=== PATIENT | female | born 1935 | race Caucasian/White ===

== ENCOUNTER 2016-07-20 23:00 | Inpatient (IN) | payer MEDICARE, OTHER ==
--- NOTE | ~2016-07-20 | CN ---
Consultation Report [facility] [address] [place]. [address] NAME: TONEY KHANNA : 35 STATUS : ADM IN PAT#: [id number] AGE: 81 ADM/REG DATE : 07/21/16 MR#: [id number] REPORT SERV DATE: 07/23/16 DICTATED BY: KATIE BOOKER DATE: 07/23/16 REPORT STATUS : Draft TRANSCRIBED BY: MODL DATE: 07/23/16 INFECTIOUS DISEASE CONSULTATION DATE OF CONSULTATION: 07/23/2016 REASON FOR CONSULTATION: Recurrent UTI. HISTORY OF PRESENT ILLNESS: This is an 81-year-old female, known to me from inpatient consultation back on 06/14 with a history of multiple medical problems along with recurrent urinary tract infections, for which she has been followed by Urology and has had treatments including intravesical gentamicin. In May, she had a Proteus UTI with sepsis and positive blood cultures and received a two-week course of IV antibiotics, which ended with ampicillin back at the residential unit. The patient was readmitted to the hospital on 06/20 from [facility] with fevers, altered mental status, and evidence of sepsis and had marked pyuria on her urinalysis, although this was from a chronic Maria catheter. After blood and urine cultures were obtained, she was started on Zosyn. Initial chest x-ray was not felt to show any evidence of pneumonia. She had a CT scan of the abdomen and pelvis without IV contrast on 06/19 and this revealed mild bibasilar subsegmental atelectasis and small pleural effusion along with chronic areas of renal cortical scarring, left greater than right, and diffuse atrophy in the left kidney and mild diverticulosis without evidence of diverticulitis. The patient had a fever up to 100.9 on 06/20 with 27% bands. Her white blood cell count was 11.6 and that has now normalized, and she has had no subsequent fevers. Her creatinine, which was 2.47 on admission, is steadily improving. However, yesterday, she developed worsening shortness of breath. She had a bedside swallow study, which showed no overt aspiration. The patient was evaluated by Pulmonary and continued to worsen throughout the day, requiring institution of a non- rebreather mask. Vancomycin was added to Zosyn for possible pneumonia, and a chest x-ray this morning does show new right-sided infiltrates. The patient says she is coughing a little, but not very productive. She denies any chest pain, abdominal pain, nausea, vomiting, or diarrhea. PAST MEDICAL HISTORY: As outlined on the previous consultation and is most notable for history of obstructive sleep apnea, asthma, coronary artery disease, pulmonary hypertension, diabetes, and systemic hypertension. She does have a pacemaker. ALLERGIES: AMITRIPTYLINE. PRESENT MEDICATIONS: In addition to the antibiotics mentioned include Norvasc, aspirin, Lipitor, Caltrate, vitamin D, Coreg, Plavix, Aricept, Lovenox, Flonase, Neurontin, Levsin, Isordil, Linzess, Ativan, magnesium oxide, Glucophage, Singulair, Promega capsules, Protonix, MiraLax, prednisone 10 mg daily, Neupro, Florastor, Zoloft, Desyrel. SOCIAL HISTORY: Unchanged. Consultation Report [address] [place]. [address] NAME: TONEY KHANNA : 35 STATUS : ADM IN [facility]#: [id number] AGE: 81 ADM/REG DATE : 07/21/16 MR#: [id number] REPORT SERV DATE: 07/23/16 DICTATED BY: KATIE BOOKER DATE: 07/23/16 REPORT STATUS : Draft TRANSCRIBED BY: HALEIGH DATE: 07/23/16 FAMILY HISTORY: Unchanged. REVIEW OF SYSTEMS: Otherwise, negative. No nausea, vomiting, or diarrhea. PHYSICAL EXAMINATION: VITAL SIGNS: The patient is alert. Blood pressure 140/64, pulse 86. She is afebrile. Respiratory rate is around 20 on the non-rebreather mask. GENERAL: She is cooperative, in no acute distress. She is not labored in her breathing. HEAD AND NECK: Other than the mask is unremarkable, but I did not examine the oral cavity. LUNGS: She has diffuse, very soft end-expiratory wheezes and a few rhonchi. CARDIAC: No murmur, gallop, or rub. Regular rhythm. ABDOMEN: Obese soft, nontender. EXTREMITIES: Without significant edema. She has peripheral IV without phlebitis. SKIN: Without rash. LABORATORY STUDIES: White blood cell count 8.2, hemoglobin 9.3, platelets 97,000. Her platelet count on admission was 109 and was 184 back in May. Procalcitonin on admission was 31.39, repeat today 5.54. Creatinine 1.36. Liver function tests normal. Albumin 2.4. Blood cultures negative. Urine culture is growing 50,000 colonies of E coli, which is pansensitive. Most recent blood gas from yesterday evening, pH 7.36, pCO2 of 35, pO2 of 83 on 80% non-rebreather. IMAGING STUDIES: As noted. IMPRESSION: 1. Catheter-associated urinary tract infection with Escherichia coli with sepsis on admission in a patient with a history of recurrent urinary tract infections. Fortunately, this is a very sensitive isolate. 2. Hypoxia and increased infiltrates on the right on today's chest x-ray, raising possibility of healthcare-associated pneumonia. Her bedside swallow study looks okay, but she still may be at some aspiration risk. PLAN: Given the chest x-ray changes today and her overall respiratory status, I will continue the Zosyn along with the vancomycin added last night and reassess over the next 24- 48 hours. Hopefully, she will improve and we will be able to narrow her antibiotics soon. ALMA/HALEIGH Katie Booker M.D. / [id number] Consultation Report [address] [place]. [address] NAME: TONEY KHANNA : 35 STATUS : ADM IN [facility]#: [id number] AGE: 81 ADM/REG DATE : 07/21/16 MR#: [id number] REPORT SERV DATE: 07/23/16 DICTATED BY: KATIE BOOKER DATE: 07/23/16 REPORT STATUS : Draft TRANSCRIBED BY: HALEIGH DATE: 07/23/16 CC: German Mckeon M.D.
--- NOTE | ~2016-07-20 | CN ---
Consultation Report [facility] [address] [place]. [address] NAME: TONEY DE LA O : 35 STATUS : ADM IN [facility]#: [id number] AGE: 81 ADM/REG DATE : 07/21/16 MR#: [id number] REPORT SERV DATE: 07/23/16 DICTATED BY: PARUL MONTANO DATE: 07/22/16 REPORT STATUS : Draft TRANSCRIBED BY: MODL DATE: 07/22/16 PULMONARY CONSULTATION. DATE OF CONSULTATION: 07/22/2016 REASON FOR CONSULTATION: Hypoxia. HISTORY OF PRESENT ILLNESS: Note-history is taken from the patient and the available medical record. Ms. De La O is an 81-year-old white female, lifelong nonsmoker, with a history of asthma/associated airway obstruction, obstructive sleep apnea-untreated and pulmonary hypertension on echocardiogram done 10/2012, who was admitted from alf with recurrent urinary tract infection/urosepsis. Pulmonary was consulted secondary to worsening hypoxia requiring 100% oxygen via non-rebreather mask. The patient denies shortness of breath, cough, sputum production, wheezing, or chest pain. She states she was told earlier today that her oxygen saturation was low. She has been receiving albuterol via nebulization every four hours as well as budesonide 1 mg and Brovana 15 mcg via nebulization every 12 hours. Her most recent arterial blood gas done earlier this evening on 80% oxygen revealed a pH of 7.36, pCO2 of 35, and pO2 of 83. With regard to her urinary tract infection/urosepsis, she has been receiving Zosyn with a good response and decreasing white blood cell count as well as a decline in her lactate. It is notable that she had a procalcitonin of 31.39 on admission though her chest x-ray has been clear. PAST MEDICAL HISTORY: 1. Asthma as noted above. 2. Obstructive sleep apnea per available medical records although the patient denies this. She has not been on CPAP. She states she would be willing to use BiPAP here as an inpatient if needed. 3. Pulmonary hypertension. Described as severe on echocardiogram done 10/2012-no evidence of this, was ever further evaluated or treated. 4. Coronary artery disease/status post CABG. 5. 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 6. Hypertension. 7. Hyperlipidemia. 8. Diabetes mellitus. 9. Osteoarthritis/degenerative joint disease. 10.Recurrent urinary tract infection. Consultation Report [facility] [address] [place]. [address] NAME: TONEY DE LA O : 35 STATUS : ADM IN PAT#: [id number] AGE: 81 ADM/REG DATE : 07/21/16 MR#: [id number] REPORT SERV DATE: 07/23/16 DICTATED BY: PARUL MONTANO DATE: 07/22/16 REPORT STATUS : Draft TRANSCRIBED BY: HALEIGH DATE: 07/22/16 11.Restless legs syndrome. 12.Previous back surgery. 13.Prior rotator cuff repair. FAMILY HISTORY: She states that one of her sons has breathing problems but she is unable to give further details. She denies other family history of pulmonary diseases. SOCIAL HISTORY: Ms. De La O is a lifelong nonsmoker though she does have a remote history of minimal secondhand smoke exposure. She is a alf resident. She denies ethanol intake, past/present drug use, chewing tobacco, or occupational exposures. She is a and has four children. MEDICATIONS: Outpatient and inpatient medications were reviewed and are as documented in record. Per available information, she was prescribed Advair for outpatient use though she states she was not on any maintenance pulmonary medications as an outpatient. ALLERGIES: AMITRIPTYLINE. REVIEW OF SYSTEMS: A 12-point system review was conducted and is remarkable for the symptoms as described in the history of present illness. She is complaining of dysuria that she feels this is improving. PHYSICAL EXAMINATION: VITAL SIGNS: Temperature 98.6 degrees, heart rate 81, blood pressure 115/61, respiratory rate 22, oxygen saturation 93% on supplemental oxygen at 15 L via non-rebreather mask. GENERAL: Pale, white female. Alert, oriented, no apparent distress. Speaking in full sentences without problems. HEENT: Normocephalic. Atraumatic. There is no scleral icterus. The conjunctivae are clear. The oropharynx is clear and dry. NECK: Supple. No lymphadenopathy was appreciated. LUNGS: There is good air movement. There are no crackles, wheezes, or rhonchi. There are diminished breath sounds at both bases. HEART: Regular rate and rhythm. No ectopy was noted. ABDOMEN: Soft. Nontender. Nondistended. There are normal bowel sounds in all four quadrants. BILATERAL EXTREMITIES: There is no clubbing, cyanosis, or edema. NEUROLOGICAL: A limited exam was conducted and was found to be nonfocal. SKIN: No rashes were noted. LABORATORY RESULTS: Labs were reviewed and are as documented in the record. Notable labs include white blood cell count of 8.5 which has decreased from 11.6 on admission. The procalcitonin on admission was 31.39. The lactate on admission was 2.8. A repeat lactate done on 07/21/2016 was 1.4. Consultation Report [place] [id number] [place]. [address] NAME: TONEY DE LA O : 35 STATUS : ADM IN PAT#: [id number] AGE: 81 ADM/REG DATE : 07/21/16 MR#: [id number] REPORT SERV DATE: 07/23/16 DICTATED BY: PARUL MONTANO DATE: 07/22/16 REPORT STATUS : Draft TRANSCRIBED BY: MODSander DATE: 07/22/16 Arterial blood gas #1 done on 04/24/2016 revealed a pH of 7.36, pCO2 of 43, and pO2 of 105 on 36% oxygen. Arterial blood gas #2 done on 07/21/2016 revealed a pH of 7.34, pCO2 of 42, and pO2 of 78 on 30% oxygen. Arterial blood gas #3 done on 07/22/2016 revealed a pH of 7.36, pCO2 of 35, and pO2 of 83 on 80% oxygen. A repeat blood gas has been ordered but has yet to be done. IMAGING: The chest x-ray done today revealed cardiomegaly and bibasilar atelectasis. There are no infiltrates. There is a very small left pleural effusion. ASSESSMENT AND PLAN: Ms. De La O is an 81-year-old white female, nonsmoker with asthma/airway obstruction, obstructive sleep apnea, and pulmonary hypertension; who was admitted with urosepsis. She has been responding to antibiotics with decreasing white blood cell count and lactate. Her increase hypoxia is likely secondary to atelectasis. There is no evidence of pneumonia though her procalcitonin is elevated as described above. Additionally, there is no evidence of bronchospasm as she is not wheezing and is moving air well on her current lung exam. RECOMMEND: 1. Improve pulmonary toilet-EzPAP will be added to her regimen. 2. Recommend changing albuterol to DuoNeb and using it every four hours. She may continue on albuterol as needed. 3. Recommend continuing Brovana and budesonide via nebulization. 4. Titrate oxygen to an oxygen saturation greater than 91%. 5. Repeat chest x-ray to reassess atelectasis and for possible infiltrates. 6. Recheck procalcitonin. 7. Check BNP-currently there is no evidence of volume overload but she has received a significant amount of IV fluids since admission. 8. As noted above, the patient does have a history of obstructive sleep apnea per the chart. She states she has been on BiPAP before and is agreeable to using it again if needed, but there is no indication for use at this time. 9. Per the chart, there is some concern about dysphagia that the patient denies this. I agree with the plan for evaluation with a barium swallow. Thank you very much for this consultation. Further recommendations to follow depending on response to therapeutic interventions. Consultation Report [address] [place]. [address] NAME: TONEY DE LA O : 35 STATUS : ADM IN PAT#: [id number] AGE: 81 ADM/REG DATE : 07/21/16 MR#: [id number] REPORT SERV DATE: 07/23/16 DICTATED BY: PARUL MONTANO DATE: 07/22/16 REPORT STATUS : Draft TRANSCRIBED BY: HALEIGH DATE: 07/22/16 PS/HALEIGH Parul Montano M.D. / [id number] CC: German Mckeon M.D.
--- NOTE | ~2016-07-20 | CN ---
Consultation Report [facility] [address] [place]. [address] NAME: TONEY DE LA O : 35 STATUS : ADM IN PAT#: [id number] AGE: 81 ADM/REG DATE : 07/21/16 MR#: [id number] REPORT SERV DATE: 07/22/16 DICTATED BY: COMPA PEREA JR. DATE: 07/22/16 REPORT STATUS : Draft TRANSCRIBED BY: HALEIGH DATE: 07/22/16 CONSULT NOTE DATE OF CONSULTATION: 07/22/2016 CHIEF COMPLAINT: Recurrent UTI with sepsis of urinary origin. HISTORY OF PRESENT ILLNESS: Mrs. De La O is an 81-year-old female, who I have seen in the past with recurrent urinary tract infection. She has been treated with both suppressive antibiotic therapy as well as intravesical gentamicin protocol from the [facility]. However, she has broken through all these options for treatment of chronic urinary tract infection. She is at high risk for UTI, secondary to her debilitated status, her incontinence, and postmenopausal status. She was admitted last night with decreased mental status for approximately 24 hours. She currently has a chronic indwelling Maria. She developed fever on the day of admission, and having more decreased awareness in mental status. No nausea or vomiting was noted. PAST MEDICAL HISTORY: Significant for type 2 diabetes, restless legs syndrome, hyperlipidemia, COPD, long-standing hypertension, coronary artery disease, pacemaker, rotator cuff repair, lumbar surgery on several occasions, and coronary artery stents. HOME MEDICATIONS: Extensive, please see the chart for details. medications include Myrbetriq. She is not currently on any suppressive antibiotic therapy. ALLERGIES: AMITRIPTYLINE. FAMILY HISTORY: Heart disease. SOCIAL HISTORY: She lives in a snf. She has four grown children and is a . PHYSICAL EXAMINATION: VITAL SIGNS: Current vital signs, temperature 98.9, blood pressure 140/77, pulse 98, respirations 20, O2 saturation 97% on 3 L of oxygen. HEENT: Normocephalic and atraumatic. NECK: Symmetric. CHEST: Clear to auscultation bilaterally. HEART: Regular rate and rhythm. ABDOMEN: Soft, nontender, and nondistended without palpable hernias. GENITOURINARY: Exam reveals a Maria catheter in place with atrophy of the vaginal mucosa. The pelvic exam was not performed. LABORATORY DATA: This morning is pending. White blood cell count yesterday on admission was 11.6, with a hemoglobin of 10. Electrolyte profile shows normal electrolytes with a BUN of 57 and creatinine of 2.19. CT scan of the abdomen and pelvis without contrast was performed Consultation Report [place] [address] [place]. [address] NAME: TONEY DE LA O : 35 STATUS : ADM IN PAT#: [id number] AGE: 81 ADM/REG DATE : 07/21/16 MR#: [id number] REPORT SERV DATE: 07/22/16 DICTATED BY: COMPA PEREA JR. DATE: 07/22/16 REPORT STATUS : Draft TRANSCRIBED BY: MODL DATE: 07/22/16 which did not show any evidence of stone or hydronephrosis. No bladder stones. The bladder was decompressed with a Maria catheter. She has chronically atrophied kidneys bilaterally, left greater than the right. ASSESSMENT: Recurrent urinary tract infection, with chronic indwelling Maria in a debilitated postmenopausal patient. RECOMMENDATIONS: At this point, we will simply treat her sepsis using a broad-spectrum antibiotic therapy as currently ordered by Dr. Mckeon with Zosyn, and we will plan focus sensitivity directed antibiotic therapy once her urine cultures return. PADDY/HALEIGH Compa Perea Jr., M.D. / [id number] CC: German Mckeon M.D.
--- NOTE | ~2016-07-20 | HP ---
History And Physical [place] [address] [facility] [place]. [address] NAME: TONEY KHANNA : 35 STATUS : ADM IN [facility]#: [id number] AGE: 81 ADM/REG DATE : 07/21/16 MR#: [id number] REPORT SERV DATE: 07/21/16 DICTATED BY: GERMAN MCKEON DATE: 07/21/16 REPORT STATUS : Draft TRANSCRIBED BY: MODL DATE: 07/21/16 DATE OF ADMISSION: 07/21/2016 CHIEF COMPLAINT: This is an 81-year-old female, who presents with altered mental status. HISTORY OF PRESENT ILLNESS: She arrived from [facility] with a low-grade fever, urinary infection, and altered mental status and is being admitted for sepsis on admission. REVIEW OF SYSTEMS: She began having decreased mental status about 24 hours prior to arrival in the ER, and has had recurrent problems with urinary infections and has an indwelling Maria catheter. There was no fever until the day of admission, and her appetite has dropped off significantly and sleeping more, but no nausea, vomiting, diarrhea, or cough. PAST MEDICAL HISTORY: Type 2 diabetes; restless legs syndrome; hyperlipidemia; COPD with asthma and obstructive sleep apnea; longstanding hypertension; and coronary artery disease with bypass, but no [place]; pacemaker for arrhythmia; rotator cuff repair; lumbar surgeries on several occasions; and coronary stents also. HOME MEDICATIONS: Norvasc 5 mg b.i.d., Brovana 15 mcg b.i.d., aspirin 81 mg daily, Lipitor 40 mg at bedtime, Pulmicort 1 mg b.i.d., Caltrate b.i.d., Coreg 12.5 mg b.i.d., Plavix 75 mg daily, cranberry extract 450 mg b.i.d., Aricept 10 mg at bedtime, Flonase each nostril daily, Neurontin 400 mg b.i.d. with 600 mg at bedtime, Mucinex 1200 mg b.i.d., Aguirre 10/325 q.4 p.r.n., Levsin 0.125 mg q.4 p.r.n., Humalog 100 units daily, Isordil 30 mg daily, acidophilus one cap b.i.d., Linzess 145 mcg every two days, Ativan 0.25 mg t.i.d., Mag-Ox 400 mg b.i.d., Glucophage 500 mg b.i.d., Myrbetriq 25 mg daily, Singulair 10 mg at bedtime, Macrodantin 50 mg daily, Nitrostat p.r.n., fish oil 1000 mcg b.i.d., Protonix 40 mg daily, MiraLAX 17 g daily, Deltasone 10 mg daily, Neupro 2 mg topical patch daily, Zoloft 50 mg daily, Desyrel 100 mg at bedtime. ALLERGIES: ALLERGY TO AMITRIPTYLINE. FAMILY HISTORY: Of heart disease. SOCIAL HISTORY: She is with four grown children. Nonsmoker. Nondrinker. 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 PHYSICAL EXAMINATION: VITAL SIGNS: BP 132/60, pulse 98, respirations 20, oxygen saturation 97% on 3 L/minute, temperature 99.6. GENERAL: She is drowsy, but arousable, and oriented to person, place, and mostly to time, no acute distress. Denies pain or dyspnea, but does complain of fatigue and anorexia. SKIN: Pale, warm, and dry. HEAD AND NECK: Cranial nerves grossly intact. Oxygen mask in place. Mucous membranes slightly moist. Neck with fair range of motion. No mass. No JVD. CHEST: With diminished breath sounds diffusely with poor effort, but no wheezes, no History And Physical [address] [address] NAME: TONEY KHANNA : 35 STATUS : ADM IN [facility]#: [id number] AGE: 81 ADM/REG DATE : 07/21/16 MR#: [id number] REPORT SERV DATE: 07/21/16 DICTATED BY: GERMAN MCKEON DATE: 07/21/16 REPORT STATUS : Draft TRANSCRIBED BY: HALEIGH DATE: 07/21/16 dano. HEART: Regular rate and rhythm without murmur. Weak peripheral pulses diffusely. ABDOMEN: Obese, supple, benign, nontender, nondistended. AND RECTAL: Indwelling silastic catheter with bedside drainage. No hematuria noted. EXTREMITIES: With good range of motion. Legs are frequently moving during the entire exam. No edema. NEUROLOGIC: Grossly intact to sensory and motor, but she is too weak to sit up without assistance. No tremors present. No palpable cervical or axillary lymph nodes. LABORATORY: WBC 11,600, H and H 10.0 and 31.2 with platelets 102. Differential shows left shift. Urinalysis shows specific gravity 1.018 with a large amount of blood and protein, moderate leukocytes, and microscopic shows greater than 182 wbc's with moderate clumps. Lactate elevated at 2.8. Sodium 139, potassium 4.6, BUN 58, creatinine 2.47, GFR 18. Albumin low at 3.1, lipase 50. Procalcitonin is very high at 31.39. CT of the brain, abdomen, and pelvis showed no acute changes. Arterial blood gas in the emergency room 7.36 for the pH with pCO2 of 43 and pO2 of 105. IMPRESSION: 1. Sepsis on admission. 2. Pyelonephritis. 3. Urinary incontinence with chronic indwelling catheter. 4. Type 2 diabetes with good control. 5. Restless legs syndrome, hypertension, hyperlipidemia, asthma, chronic obstructive pulmonary disease, obstructive sleep apnea, coronary artery disease, debility (nonambulatory for three years). PLAN: For empiric treatment with IV Zosyn, IV hydration at 125 mL/h normal saline. DVT prophylaxis with enoxaparin 30 mg q.24 hours. Sliding scale level 1 insulin. Comfort measures. Continue code status, DNR, limited. Electrolyte protocol. Continue home medications except for the Myrbetriq, which probably is not helping in light of her indwelling catheter. We will resume 1800 calorie ADA diet while waiting for Speech Therapy evaluation, consult to Dr. Perea for the recurrent urosepsis and to the Infectious Disease group due to the potential of colonization and follow electrolytes closely as well as blood and urine cultures. BP/MODL German Mckeon M.D. / [id number] CC: German Mckeon M.D.
--- NOTE | ~2016-07-20 | DS ---
Discharge Summary [facility] [address] [place]. [address] NAME: TONEY KHANNA : 35 STATUS : DIS IN PAT#: [id number] AGE: 81 ADM/REG DATE : 07/21/16 MR#: [id number] REPORT SERV DATE: 08/08/16 DICTATED BY: GERMAN MCKEON DATE: 08/07/16 REPORT STATUS : Draft TRANSCRIBED BY: MODSander DATE: 08/07/16 Data Collection from hospitalization DISCHARGE DIAGNOSIS(ES): 1. Sepsis secondary to urinary tract infection/pneumonia. 2. Catheter associated urinary tract infection - present on arrival. 3. Healthcare acquired pneumonia. 4. Dysphagia. 5. Type 2 diabetes. 6. Hypertension. 7. Restless legs syndrome. 8. Hyperlipidemia. 9. Chronic obstructive pulmonary disease with asthma. 10.Coronary artery disease. CONSULTATIONS: Compa Perea Jr., M.D., Parul Hollingsworth M.D., and Jose Roberto Booker M.D. PROCEDURES PERFORMED: 1. CT scan of the abdomen and pelvis without contrast, 07/20/2016. 2. CT scan of the brain without contrast, 07/20/2016. 3. Modified barium swallow study, 07/29/2016. MEDICATIONS: Norvasc 5 mg twice a day as instructed; aspirin 81 mg daily; Lipitor 40 mg at bedtime; Coreg 12.5 mg twice a day; Plavix 75 mg daily; Caltrate plus D 600 mg twice a day; Aricept 10 mg every day at bedtime; enoxaparin 40 mg subcutaneously at noon as instructed; Flonase nasal spray 50 mcg via inhaler daily; Neurontin 400 mg at 9 a.m. and 3 p.m.; Neurontin 600 mg at bedtime; Mucinex 1200 mg twice a day; Levsin 0.125 mg every four hours as needed; Isordil 30 mg daily; Ativan 0.25 mg three times a day; Linzess 145 mcg every two days as instructed; Mag-Ox 400 mg three times a day; Merrem 500 mg IV every six hours through 07/30/2016; Singulair 10 mg every day at bedtime; acidophilus one capsule twice a day; fish oil 1000 mcg twice a day; Protonix 40 mg daily; MiraLAX powder 17 g daily; potassium chloride SR 20 mEq daily; Neupro 2 mg topically daily; Zoloft 50 mg daily; Desyrel 100 mg every day at bedtime; Glucophage 1000 mg with breakfast and supper; Deltasone 10 mg daily; Brovana 15 mcg via inhaler twice a day; Pulmicort Respules 1 mg via inhaler twice a day; DuoNeb 3 mL via inhaler every four hours while awake; cranberry 450 mg twice a day; Myrbetriq 25 mg daily; [place] 10/325 every four hours as needed; Nitrostat 0.4 mg sublingually every five minutes x3 as needed; and meropenem 500 mg IV every six hours, to complete after 07/30/2016. CONDITION AT DISCHARGE: Stable. DISPOSITION: The patient was discharged to [facility] being held n.p.o. and activities as instructed. HOSPITAL COURSE: This is an 81-year-old female who presented with an altered mental status. She arrived from [facility] with a low-grade fever, urinary infection, and altered mental status. She was felt to have sepsis at the time of admission. She began having decreased mental status about 24 hours prior to arrival in the emergency room. She Discharge Summary [address] [address] NAME: TONEY KHANNA : 35 STATUS : DIS IN PAT#: [id number] AGE: 81 ADM/REG DATE : 07/21/16 MR#: [id number] REPORT SERV DATE: 08/08/16 DICTATED BY: GERMAN MCKEON DATE: 08/07/16 REPORT STATUS : Draft TRANSCRIBED BY: HALEIGH DATE: 08/07/16 had recurrent problems with urinary infections and had an indwelling Maria catheter. There had been no fever until the day of admission, and her appetite had dropped off significantly. She was sleeping more but had no nausea, vomiting, diarrhea, or cough. She was admitted to the hospital for further evaluation and treatment. Upon admission, white count was 11,600. Urinalysis shows specific gravity of 1.018 with a large amount of blood and protein, moderate leukocyte, and microscopic revealed greater than 182 white blood cells with moderate clots. Lactate was elevated at 2.8. CT scan of the brain, abdomen, and pelvis showed no acute changes. The patient has had urinary incontinence with chronic indwelling catheter. Diabetes is under good control. IV Zosyn was started for empiric treatment. IV hydration was started. DVT prophylaxis was begun with enoxaparin. Level 1 sliding scale insulin was started. Comfort measures would be provided. The patient remained DNR code status - limited. Electrolyte protocol was in place. We would continue home medications except for Myrbetriq. I am going to resume a diabetic diet, and urine cultures were obtained. The following day the patient was seen by Dr. Compa Perea Jr., regarding recurrent urinary tract infection with sepsis of urinary origin. CT scan of the abdomen and pelvis did not show any evidence of stone or hydronephrosis. There were no bladder stones. The bladder was decompressed with a Maria catheter. She has chronically atrophied kidneys bilaterally, left greater than right. His assessment included recurrent urinary tract infection with chronic indwelling Maria in a debilitated postmenopausal patient. We would simply treat her sepsis using broad-spectrum antibiotic therapy with Zosyn. We would plan focussed sensitivity directed antibiotic therapy once her urine cultures returned. She was also seen by Dr. Parul Hollingsworth regarding hypoxia. She had a procalcitonin level of 31.39 on admission. Her chest x-ray has been clear. She was responding to antibiotics with decreasing white blood cell count and lactate. She recommended improved pulmonary toilet with EzPAP to be added to her regimen. Albuterol will be changed to DuoNeb, and she was to use at every four hours. Albuterol would be continued as needed. Brovana was continued as well as budesonide via nebulization. We would titrate oxygen to an oxygen saturation greater than 91%. We would recheck procalcitonin. BNP was going to be checked. The patient has a history of obstructive sleep apnea. She said she had been on BiPAP previously and was agreeable to using it again as needed, but there was no indication for use at this time. It was felt that she would need to undergo a barium swallow study. On 07/23/2016, she was seen by Dr. Jose Roberto Booker regarding recurrent urinary tract infection. This was felt to be a catheter associated urinary tract infection with Escherichia coli with sepsis on admission in a patient with a history of recurrent urinary tract infections. Fortunately, this was a very sensitive isolette. There was hypoxia, and she had increased infiltrates on the right on chest x-ray raising the possibility of healthcare-associated pneumonia. Bedside swallow study was okay, but she may still have some aspiration risk. Zosyn was going to be continued with vancomycin, which had been added the previous evening. It was changed to Vapotherm. Procalcitonin level was 5.44. On the , she said she felt much better. She reports that her neuropathy had improved after she received her medications. Her T-max was 99.6. Antibiotics were changed to meropenem. On 07/25/2016, she was afebrile. She seemed to be feeling better. She had an occasional cough. She still had some occasional itching and a few rhonchi anteriorly, right greater than left. White blood cell count was normal. Sputum culture was going to be obtained. Discharge Summary [address] [address] NAME: TONEY KHANNA : 35 STATUS : DIS IN PAT#: [id number] AGE: 81 ADM/REG DATE : 07/21/16 MR#: [id number] REPORT SERV DATE: 08/08/16 DICTATED BY: GERMAN MCKEON DATE: 08/07/16 REPORT STATUS : Draft TRANSCRIBED BY: HALEIGH DATE: 08/07/16 Phosphorus supplementation was provided. She was evaluated by Occupational and Physical Therapy. The next day, she was afebrile. She seemed to be making progress. She seemed to be eating better that morning. She did have some catheter issues, this would be followed by Dr. Perea as an outpatient. Steroids were decreased. Magnesium supplementation was given. On 07/27/2016, she reports that she was feeling better. She denied any complaints of shortness of breath. She had no chest pain. Potassium supplementation continued. She remained afebrile. The next day, she had more of a cough. She had no shortness of breath. She said she was feeling better. Discharge planning was performed. The patient was aware that her blood sugars were not well controlled. She agreed to increase her metformin. On 07/29/2016, a modified barium swallow study was performed. The patient has severe difficulty holding her body upright during the study. Aspiration precautions were in place. Discharge instructions were given. Due to her improved and stable condition, she was discharged to [facility] with the above-stated instructions. Information collected by: Caitlin Soto I submit the above information as my discharge summary. ARIANNA/HALEIGH German Mckeon M.D. / [id number] CC: German Mckeon M.D. [facility] Landon Joy Jr., M.D.
[~2016-07-20 23:00] MED LIST: *UNABLE1; *UNABLE3; ACCUNEB INH; ACETSUP650 PR; ACIDOPHILU2 PO; ADVAIR INH; ADVAIR100 INH; ADVAIR250 INH; AMOXIL500 MG; ARICEPT10 PO; ASA5GR PO; ASAB PO; AT25 PO; ATROVENTUD INH; ATV.5 PO; BAC PO; BACDS PO; BACLOFEN20 MG PO; BIAXIN5 PO; BRILINTA90 MG PO; BROVANA; BROVANA INH; CALMOSEPTINE O2.5 OZ T; CALTRA600D PO; CEFT5 PO; CELEBREX1 PO; COREG12 PO; COREG25 PO; CRANBERY450 MG PO; D 3 PO; DITRO5 PO; DOCUSOFT S100 MG PO; DSS PO; DUONEB INH; FERROUS SULF325 M1 PO; FISH-EPA1000 MG PO; FLONASE NAS; FLUCON1 PO; FOSAMAX70 MG PO; GANIDIN NR100 MG/5 M PO; GLUCOPHAGE1000 MG PO; GLUCOSAMINEPO PO; GLUCPH PO; GLYNASE6 MG PO; HCTZ25B PO; HUMIBID1200 MG PO; HYDROCHLOROT25 MG PO; IMDUR120 PO; IMDUR60 PO; ISOSORB DIN30 MG PO; LEVAQUIN750 MG PO; LINZESS 145 M145 MCG PO; LIOR10 PO; LIPITOR40 PO; LISINOPRIL40 MG PO; LOFIBRA160 MG PO; LOP100 PO; LOP50 PO; LOPID6 PO; LORTAB 5 PO; LORTAB10 PO; LOVENOX40 SC; LYRICA75 PO; MACRO50B PO; MAGNESIUM PO; MAGOX4 PO; MIRALAX POWDER1 PKT PO; MIRALAXPKT PO; MONOKET PO; MSCONT15 PO; MUCINEX600 MG PO; MYCOSCROI TOP; MYRBETRIQ50 MG PO; NEUPRO1 EAC1 TOP; NEUR400 PO; NEUR800 PO; NITROQUICK0.4 MG SL; NITROSTAT0.4 MG SL; NORCO1 TAB PO; NORV10 PO; NORV25 PO; NORV5 PO; NOVOLOG SC; OXYCON20 PO; P10 PO; PERCOCET1 TA3 PO; PERCOCET1 TA4 PO; PLAVIX PO; POTASSIUM OTC; PRAV10 PO; PRAVACHOL40 MG PO; PROAIR HFA INH; PROAIRRESP INH; PROLOP100 PO; PROMEGA PO; PROTONIX PO; PROVENTSOL INH; PULRESP1 INH; RELA5 PO; REQUIP1 PO; REQUIP5 PO; SENTAB PO; SINGULAIR1 PO; STRESSZINC PO; T PO; TOVIAZ; TRAZ100 PO; TRILIPIX135 MG PO; VASOTEC20 MG PO; VASOTEC5 PO; VENTOLIN NEBULIZER INH; VITAMIN D1000 UNI1 PO; VITAMIN D31000 UNIT PO; ZESTRIL40 MG PO; ZOFRAN ODT4 MG PO; [UNRECOGNIZED DRUG - OTHER] PO; [UNRECOGNIZED DRUG - OTHER] TOP
[2016-07-20 23:37] LABS: BE (BASE EXCESS) -1.8 MEQ/L (0 +/- 2.5); CARBOXYHEMOGLOBIN 1.5 % (0-3); HCO3 (ACTUAL BICARBONATE) 23.6 MEQ/L (23-27); INSTRUMENT SERIAL # 8087; METHEMOGLOBIN 0.3 % (0-3); O2 CONTENT 16.3 VOL% (18-24); OPERATOR ID 17589; PCO2 (CO2 TENSION) 43 MMHG (35-45); PO2 (O2 TENSION) 105 MMHG (79-93); SAMPLE Arterial; pH 7.36 (7.37-7.43)
[2016-07-20 23:38] LABS: DEVICE Nasal Cannula @ 4 LP
[2016-07-20 23:41] LABS: BASOPHILS 0.1 %; BASOPHILS ABSOLUTE 0.01 10/3/uL (0.0-0.16); EOSINOPHILS 0 %; HEMATOCRIT 36.6 % (36.0-48.0); HEMOGLOBIN 11.9 g/dL (12.0-16.0); IMMATURE GRANULOCYTES 1.8 %; IMMATURE GRANULOCYTES ABSOLUTE 0.21 10/3/uL (0.0-0.11); LYMPHOCYTES 4.6 %; LYMPHOCYTES ABSOLUTE 0.54 10/3/uL (0.67-4.30); MEAN CORPUS HGB CONC 32.5 g/dL (32.0-36.0); MEAN CORPUSCULAR HEMOGLOB 30.8 pg (26.0-34.0); MEAN CORPUSCULAR VOLUME 94.8 fL (80-100); MEAN PLATELET VOLUME 10.8 fL (9.2-13.0); MONOCYTES 5.6 %; MONOCYTES ABSOLUTE 0.65 10/3/uL (0.21-1.20); NEUTROPHILS 87.9 %; NEUTROPHILS ABSOLUTE 10.21 10/3/uL (2.02-8.40); RBC DISTRIBUTION WIDTH 15.8 % (12.0-16.0); RED CELL COUNT 3.86 10/6/uL (4.0-5.6)
[2016-07-20 23:42] LABS: MANUAL DIFF NO %; PLATELET COUNT 109 10/3/uL (150-400); WHITE BLOOD CELLS 11.6 10/3/uL (4.5-10.5)
[2016-07-20 23:52] LABS: ASCORBIC ACID (UR NOT ORDER) NEG (NEG); BILIRUBIN, URINE NEGATIVE (NEG); ER URINALYSIS TAT 0 Hrs 00 Mins; KETONE, URINE NEGATIVE (NEG); LEUKOCYTE ESTERASE(NOT OR MOD (NEG); NITRITE (URINE) NEG (NEG)
[2016-07-20 23:56] LABS: A/G RATIO 0.7 (0.7-1.9); ALBUMIN 3.1 G/DL (3.5-5.0); CALCIUM, SERUM 9.3 MG/DL (8.5-10.4); CHLORIDE, SERUM 102 MMOL/L (96-112); GLOBULIN 4.5 G/DL (2.5-4.1); SGOT(AST) 26 U/L (5-40); SGPT(ALT) 19 U/L (5-65); SODIUM, SERUM 139 MMOL/L (135-148); TOTAL BILIRUBIN 0.5 MG/DL (0-1.2); TOTAL PROTEIN 7.6 G/DL (6.0-8.5)
[2016-07-21] LABS: ALKALINE PHOSPHATASE 109 U/L (45-117); BUN (BLOOD UREA NITROGEN) 58 MG/DL (6-23); CO2 (CARBON DIOXIDE) 24 MMOL/L (24-34); CREATININE 2.47 MG/DL (0.55-1.02); GFR AFRICAN AMERICAN 21 ML/MIN (>=60); GFR NON AFRICAN AMERICAN 18 ML/MIN (>=60); GLUCOSE, SERUM 199 MG/DL (60-99); POTASSIUM, SERUM 4.6 MMOL/L (3.5-5.3)
[2016-07-21 00:02] LABS: WBC (NOT ORDERED) (RFLEX) > 182 (0-5)
[2016-07-21 00:02] LABS: LACTATE 2.8 MMOL/L (0.3-2.4)
[2016-07-21 00:42] LABS: PROCALCITONIN 31.39 ng/mL (<0.5)
[2016-07-21] MEDS ORDERED: NEUR600 PO (00:51)
[2016-07-21] MEDS ORDERED: NEUR400 PO (00:52)
[2016-07-21] MEDS ORDERED: MACRO50B PO (00:52)
[2016-07-21] MEDS ORDERED: LIPITOR40 PO (00:53)
[2016-07-21] MEDS ORDERED: ARICEPT10 PO (00:53)
[2016-07-21] MEDS ORDERED: TRAZ100 PO (00:54)
[2016-07-21] MEDS ORDERED: SINGULAIR1 PO (00:54)
[2016-07-21] MEDS ORDERED: ATV.5 PO (00:55)
[2016-07-21] MEDS ORDERED: GLUCPH PO (00:56)
[2016-07-21] MEDS ORDERED: PULRESP1 INH (00:57)
[2016-07-21] MEDS ORDERED: PROTONIX PO (01:00)
[2016-07-21] MEDS ORDERED: LINZESS 145 M145 MCG PO (01:00)
[2016-07-21] MEDS ORDERED: CALTRA600D PO (01:01)
[2016-07-21] MEDS ORDERED: NORV5 PO (01:02)
[2016-07-21] MEDS ORDERED: BROVANA15 MCG INH (01:03)
[2016-07-21] MEDS ORDERED: ACIDOPHILU2 PO (01:03)
[2016-07-21] MEDS ORDERED: COREG12 PO (01:04)
[2016-07-21] MEDS ORDERED: FISH-EPA1000 MG PO (01:06)
[2016-07-21] MEDS ORDERED: CRANBERY450 MG PO (01:06)
[2016-07-21] MEDS ORDERED: MUCINEX600 MG PO (01:07)
[2016-07-21] MEDS ORDERED: MAGOX4 PO (01:07)
[2016-07-21] MEDS ORDERED: ASAB PO (01:08)
[2016-07-21] MEDS ORDERED: FLONASE INH (01:08)
[2016-07-21] MEDS ORDERED: ISOSORB DIN30 MG PO (01:09)
[2016-07-21] MEDS ORDERED: MIRALAX POWDER1 PKT PO (01:10)
[2016-07-21] MEDS ORDERED: NEUPRO1 EAC1 TOP (01:11)
[2016-07-21] MEDS ORDERED: P10 PO (01:12)
[2016-07-21] MEDS ORDERED: ZOL50 PO (01:12)
[2016-07-21] MEDS ORDERED: MYRBETRIQ25 MG PO (01:13)
[2016-07-21] MEDS ORDERED: HUMALOG SC (01:16)
[2016-07-21] MEDS ORDERED: NORCO1 TAB PO (01:17)
[2016-07-21] MEDS ORDERED: PLAVIX PO (01:17)
[2016-07-21] MEDS ORDERED: LEVSINTAB PO (01:18)
[2016-07-21] MEDS ORDERED: NITROSTAT0.4 MG SL (01:19)
[2016-07-21 04:33] LABS: BE (BASE EXCESS) -3.2 MEQ/L (0 +/- 2.5); INSTRUMENT SERIAL # 8083; PCO2 (CO2 TENSION) 42 MMHG (35-45); PO2 (O2 TENSION) 78 MMHG (79-93); pH 7.34 (7.37-7.43)
[2016-07-21 04:34] LABS: ALLENS TEST Pos; DEVICE VM; HCO3 (ACTUAL BICARBONATE) 22.4 MEQ/L (23-27); METHEMOGLOBIN 0.3 % (0-3); O2 CONTENT 14.5 VOL% (18-24); OPERATOR ID 32193; SAMPLE Arterial
[2016-07-21 05:27] LABS: MEAN CORPUS HGB CONC 32.1 g/dL (32.0-36.0); MEAN CORPUSCULAR HEMOGLOB 30.7 pg (26.0-34.0); MEAN CORPUSCULAR VOLUME 95.7 fL (80-100); MEAN PLATELET VOLUME 10.9 fL (9.2-13.0); PLATELET COUNT 102 10/3/uL (150-400); RED CELL COUNT 3.26 10/6/uL (4.0-5.6); WHITE BLOOD CELLS 11.6 10/3/uL (4.5-10.5)
[2016-07-21 05:30] LABS: BUN (BLOOD UREA NITROGEN) 57 MG/DL (6-23); CHLORIDE, SERUM 107 MMOL/L (96-112); CO2 (CARBON DIOXIDE) 21 MMOL/L (24-34); CREATININE 2.19 MG/DL (0.55-1.02); GFR AFRICAN AMERICAN 24 ML/MIN (>=60); GFR NON AFRICAN AMERICAN 20 ML/MIN (>=60); GLUCOSE, SERUM 207 MG/DL (60-99); POTASSIUM, SERUM 4.4 MMOL/L (3.5-5.3); SODIUM, SERUM 140 MMOL/L (135-148)
[2016-07-21 05:34] LABS: CALCIUM, SERUM 8.3 MG/DL (8.5-10.4); HEMATOCRIT 31.2 % (36.0-48.0); MANUAL DIFF YES %
[2016-07-21 07:24] LABS: BAND NEUTROPHILS 27 %; EOSINOPHILS 2 %; EOSINOPHILS ABSOLUTE (CALC) 0.23 10/3/uL (0.0-0.53); LYMPHOCYTES 4 %; LYMPHOCYTES ABSOLUTE (CALC) 0.46 10/3/uL (0.67-4.30); MONOCYTES 7 %; MONOCYTES ABSOLUTE (CALC) 0.81 10/3/uL (0.21-1.20); NEUTROPHILS ABSOLUTE (CALC) 10.09 10/3/uL (2.02-8.40); SEGMENTED NEUTROPHIL (0) 60 %; TOTAL NUCLEATED CELLS 100
[2016-07-21 07:25] LABS: PLATELET ESTIMATE SLT DEC (ADEQUATE); POLYCHROMASIA 1+ (2-5/OIF) (0-1/OIF); TEARDROP SHAPED RBCS OCC (0-2/OIF); TOXIC GRANULATION 1+; VACUOLATED NEUTROPHILES OCC
[2016-07-22 08:42] LABS: BASOPHILS 0 %; EOSINOPHILS 0.2 %; EOSINOPHILS ABSOLUTE 0.02 10/3/uL (0.0-0.53); HEMATOCRIT 29.7 % (36.0-48.0); HEMOGLOBIN 9.6 g/dL (12.0-16.0); IMMATURE GRANULOCYTES 0.4 %; IMMATURE GRANULOCYTES ABSOLUTE 0.03 10/3/uL (0.0-0.11); LYMPHOCYTES 4.6 %; LYMPHOCYTES ABSOLUTE 0.39 10/3/uL (0.67-4.30); MANUAL DIFF NO %; MEAN CORPUS HGB CONC 32.3 g/dL (32.0-36.0); MEAN CORPUSCULAR HEMOGLOB 30.7 pg (26.0-34.0); MEAN CORPUSCULAR VOLUME 94.9 fL (80-100); MEAN PLATELET VOLUME 11.1 fL (9.2-13.0); MONOCYTES 5.2 %; MONOCYTES ABSOLUTE 0.44 10/3/uL (0.21-1.20); NEUTROPHILS 89.6 %; NEUTROPHILS ABSOLUTE 7.63 10/3/uL (2.02-8.40); PLATELET COUNT 85 10/3/uL (150-400); RBC DISTRIBUTION WIDTH 16.5 % (12.0-16.0); RED CELL COUNT 3.13 10/6/uL (4.0-5.6); WHITE BLOOD CELLS 8.5 10/3/uL (4.5-10.5)
[2016-07-22 08:57] LABS: CALCIUM, SERUM 8.5 MG/DL (8.5-10.4); CHLORIDE, SERUM 112 MMOL/L (96-112); CO2 (CARBON DIOXIDE) 20 MMOL/L (24-34); GLUCOSE, SERUM 228 MG/DL (60-99); POTASSIUM, SERUM 3.9 MMOL/L (3.5-5.3); SGOT(AST) 17 U/L (5-40); SGPT(ALT) 14 U/L (5-65); SODIUM, SERUM 142 MMOL/L (135-148); TOTAL BILIRUBIN 0.5 MG/DL (0-1.2); TOTAL PROTEIN 6.7 G/DL (6.0-8.5)
[2016-07-22 08:58] LABS: A/G RATIO 0.6 (0.7-1.9); ALBUMIN 2.4 G/DL (3.5-5.0); ALKALINE PHOSPHATASE 83 U/L (45-117); BUN (BLOOD UREA NITROGEN) 45 MG/DL (6-23); CREATININE 1.45 MG/DL (0.55-1.02); GFR AFRICAN AMERICAN 39 ML/MIN (>=60); GFR NON AFRICAN AMERICAN 34 ML/MIN (>=60); GLOBULIN 4.3 G/DL (2.5-4.1)
[2016-07-22 17:40] LABS: ALLENS TEST Pos; BE (BASE EXCESS) -4.5 MEQ/L (0 +/- 2.5); CARBOXYHEMOGLOBIN 0.5 % (0-3); DEVICE NRB; HCO3 (ACTUAL BICARBONATE) 20.4 MEQ/L (23-27); HEMOBLOGIN CONTENT 9.7 G/DL (12-16); INSTRUMENT SERIAL # 8083; O2 CONTENT 13.1 VOL% (18-24); OPERATOR ID 35091; PCO2 (CO2 TENSION) 37 MMHG (35-45); PO2 (O2 TENSION) 82 MMHG (79-93); SAMPLE Arterial; pH 7.36 (7.37-7.43)
[2016-07-22 19:34] LABS: ALLENS TEST Pos; BE (BASE EXCESS) -5.4 MEQ/L (0 +/- 2.5); CARBOXYHEMOGLOBIN 0.3 % (0-3); DEVICE NRB; HCO3 (ACTUAL BICARBONATE) 19.4 MEQ/L (23-27); HEMOBLOGIN CONTENT 9.4 G/DL (12-16); INSTRUMENT SERIAL # 8083; METHEMOGLOBIN 0.1 % (0-3); O2 CONTENT 12.7 VOL% (18-24); OPERATOR ID 17370; PCO2 (CO2 TENSION) 35 MMHG (35-45); PO2 (O2 TENSION) 83 MMHG (79-93); SAMPLE Arterial; pH 7.36 (7.37-7.43)
[2016-07-23 05:19] LABS: BASOPHILS 0 %; EOSINOPHILS 0.2 %; EOSINOPHILS ABSOLUTE 0.02 10/3/uL (0.0-0.53); HEMATOCRIT 29.2 % (36.0-48.0); HEMOGLOBIN 9.3 g/dL (12.0-16.0); IMMATURE GRANULOCYTES 0.4 %; IMMATURE GRANULOCYTES ABSOLUTE 0.03 10/3/uL (0.0-0.11); LYMPHOCYTES 6.1 %; MEAN CORPUS HGB CONC 31.8 g/dL (32.0-36.0); MEAN CORPUSCULAR HEMOGLOB 30.6 pg (26.0-34.0); MEAN CORPUSCULAR VOLUME 96.1 fL (80-100); MEAN PLATELET VOLUME 11.3 fL (9.2-13.0); MONOCYTES 5.8 %; MONOCYTES ABSOLUTE 0.48 10/3/uL (0.21-1.20); NEUTROPHILS 87.5 %; NEUTROPHILS ABSOLUTE 7.18 10/3/uL (2.02-8.40); PLATELET COUNT 97 10/3/uL (150-400); RBC DISTRIBUTION WIDTH 16.3 % (12.0-16.0); RED CELL COUNT 3.04 10/6/uL (4.0-5.6); WHITE BLOOD CELLS 8.2 10/3/uL (4.5-10.5)
[2016-07-23 05:21] LABS: MANUAL DIFF NO %
[2016-07-23 05:47] LABS: BUN (BLOOD UREA NITROGEN) 44 MG/DL (6-23); CALCIUM, SERUM 8.3 MG/DL (8.5-10.4); CHLORIDE, SERUM 114 MMOL/L (96-112); CO2 (CARBON DIOXIDE) 21 MMOL/L (24-34); CREATININE 1.36 MG/DL (0.55-1.02); GFR AFRICAN AMERICAN 42 ML/MIN (>=60); GFR NON AFRICAN AMERICAN 36 ML/MIN (>=60); GLUCOSE, SERUM 166 MG/DL (60-99); SODIUM, SERUM 144 MMOL/L (135-148)
[2016-07-23 06:49] LABS: PROCALCITONIN 5.44 ng/mL (<0.5)
[2016-07-24 06:54] LABS: CALCIUM, SERUM 7.9 MG/DL (8.5-10.4); CHLORIDE, SERUM 111 MMOL/L (96-112); CO2 (CARBON DIOXIDE) 22 MMOL/L (24-34); CREATININE 0.95 MG/DL (0.55-1.02); GFR AFRICAN AMERICAN 65 ML/MIN (>=60); GFR NON AFRICAN AMERICAN 56 ML/MIN (>=60); GLUCOSE, SERUM 197 MG/DL (60-99); POTASSIUM, SERUM 3.3 MMOL/L (3.5-5.3); SODIUM, SERUM 146 MMOL/L (135-148)
[2016-07-24 06:57] LABS: BUN (BLOOD UREA NITROGEN) 29 MG/DL (6-23); PHOSPHORUS, SERUM 1.7 MG/DL (2.5-4.5)
[2016-07-24 20:34] LABS: BUN (BLOOD UREA NITROGEN) 28 MG/DL (6-23); CALCIUM, SERUM 8.1 MG/DL (8.5-10.4); CHLORIDE, SERUM 109 MMOL/L (96-112); CO2 (CARBON DIOXIDE) 23 MMOL/L (24-34); CREATININE 0.98 MG/DL (0.55-1.02); GFR AFRICAN AMERICAN 63 ML/MIN (>=60); GFR NON AFRICAN AMERICAN 54 ML/MIN (>=60); POTASSIUM, SERUM 3.3 MMOL/L (3.5-5.3); SODIUM, SERUM 142 MMOL/L (135-148)
[2016-07-24 20:37] LABS: GLUCOSE, SERUM 246 MG/DL (60-99); PHOSPHORUS, SERUM 2.5 MG/DL (2.5-4.5)
[2016-07-25 05:24] LABS: HEMATOCRIT 29.5 % (36.0-48.0); HEMOGLOBIN 9.2 g/dL (12.0-16.0); MEAN CORPUS HGB CONC 31.2 g/dL (32.0-36.0); MEAN CORPUSCULAR HEMOGLOB 30.1 pg (26.0-34.0); MEAN CORPUSCULAR VOLUME 96.4 fL (80-100); MEAN PLATELET VOLUME 11.9 fL (9.2-13.0); PLATELET COUNT 115 10/3/uL (150-400); RBC DISTRIBUTION WIDTH 16.2 % (12.0-16.0); RED CELL COUNT 3.06 10/6/uL (4.0-5.6); WHITE BLOOD CELLS 5.7 10/3/uL (4.5-10.5)
[2016-07-25 05:27] LABS: BUN (BLOOD UREA NITROGEN) 28 MG/DL (6-23); CALCIUM, SERUM 8.3 MG/DL (8.5-10.4); CHLORIDE, SERUM 111 MMOL/L (96-112); CO2 (CARBON DIOXIDE) 22 MMOL/L (24-34); CREATININE 1.02 MG/DL (0.55-1.02); GFR AFRICAN AMERICAN 60 ML/MIN (>=60); GFR NON AFRICAN AMERICAN 52 ML/MIN (>=60); GLUCOSE, SERUM 205 MG/DL (60-99); PHOSPHORUS, SERUM 2.3 MG/DL (2.5-4.5); SODIUM, SERUM 143 MMOL/L (135-148)
[2016-07-25 05:28] LABS: POTASSIUM, SERUM 3.9 MMOL/L (3.5-5.3)
[2016-07-25 05:54] LABS: MANUAL DIFF YES %
[2016-07-25 07:08] LABS: LYMPHOCYTES 8 %; LYMPHOCYTES ABSOLUTE (CALC) 0.46 10/3/uL (0.67-4.30); MONOCYTES 8 %; MONOCYTES ABSOLUTE (CALC) 0.46 10/3/uL (0.21-1.20); NEUTROPHILS ABSOLUTE (CALC) 4.79 10/3/uL (2.02-8.40); PLATELET ESTIMATE SLT DEC (ADEQUATE); RBC MORPHOLOGY NORM (NORMAL); SEGMENTED NEUTROPHIL (0) 84 %; TOTAL NUCLEATED CELLS 100
[2016-07-26 04:56] LABS: BASOPHILS 0.4 %; BASOPHILS ABSOLUTE 0.02 10/3/uL (0.0-0.16); EOSINOPHILS 0.2 %; EOSINOPHILS ABSOLUTE 0.01 10/3/uL (0.0-0.53); HEMATOCRIT 30.1 % (36.0-48.0); HEMOGLOBIN 9.5 g/dL (12.0-16.0); IMMATURE GRANULOCYTES 1.4 %; IMMATURE GRANULOCYTES ABSOLUTE 0.08 10/3/uL (0.0-0.11); LYMPHOCYTES ABSOLUTE 0.62 10/3/uL (0.67-4.30); MEAN CORPUS HGB CONC 31.6 g/dL (32.0-36.0); MEAN CORPUSCULAR HEMOGLOB 30.3 pg (26.0-34.0); MEAN CORPUSCULAR VOLUME 95.9 fL (80-100); MEAN PLATELET VOLUME 11.7 fL (9.2-13.0); MONOCYTES 6.7 %; MONOCYTES ABSOLUTE 0.38 10/3/uL (0.21-1.20); NEUTROPHILS 80.3 %; NEUTROPHILS ABSOLUTE 4.54 10/3/uL (2.02-8.40); PLATELET COUNT 139 10/3/uL (150-400); RED CELL COUNT 3.14 10/6/uL (4.0-5.6); WHITE BLOOD CELLS 5.7 10/3/uL (4.5-10.5)
[2016-07-26 05:03] LABS: MANUAL DIFF NO %
[2016-07-26 05:07] LABS: BUN (BLOOD UREA NITROGEN) 28 MG/DL (6-23); CALCIUM, SERUM 8.3 MG/DL (8.5-10.4); CHLORIDE, SERUM 103 MMOL/L (96-112); CREATININE 0.97 MG/DL (0.55-1.02); GFR AFRICAN AMERICAN 63 ML/MIN (>=60); GFR NON AFRICAN AMERICAN 55 ML/MIN (>=60); PHOSPHORUS, SERUM 2.5 MG/DL (2.5-4.5); POTASSIUM, SERUM 3.3 MMOL/L (3.5-5.3); SODIUM, SERUM 142 MMOL/L (135-148)
[2016-07-26 05:10] LABS: CO2 (CARBON DIOXIDE) 28 MMOL/L (24-34); GLUCOSE, SERUM 270 MG/DL (60-99)
[2016-07-27 08:35] LABS: B NATRIURETIC PEPTIDE (BNP) 447.9 PG/ML (< 100.0)
[2016-07-27 08:37] LABS: CALCIUM, SERUM 8.5 MG/DL (8.5-10.4); CHLORIDE, SERUM 99 MMOL/L (96-112); CO2 (CARBON DIOXIDE) 32 MMOL/L (24-34); CREATININE 0.85 MG/DL (0.55-1.02); GFR AFRICAN AMERICAN 74 ML/MIN (>=60); GFR NON AFRICAN AMERICAN 64 ML/MIN (>=60); PHOSPHORUS, SERUM 1.9 MG/DL (2.5-4.5); POTASSIUM, SERUM 3.4 MMOL/L (3.5-5.3); SODIUM, SERUM 142 MMOL/L (135-148)
[2016-07-27 08:38] LABS: BUN (BLOOD UREA NITROGEN) 22 MG/DL (6-23); GLUCOSE, SERUM 200 MG/DL (60-99)
[2016-07-28 04:10] LABS: BUN (BLOOD UREA NITROGEN) 23 MG/DL (6-23); CALCIUM, SERUM 8.8 MG/DL (8.5-10.4); CHLORIDE, SERUM 96 MMOL/L (96-112); CO2 (CARBON DIOXIDE) 36 MMOL/L (24-34); CREATININE 0.72 MG/DL (0.55-1.02); GFR AFRICAN AMERICAN 91 ML/MIN (>=60); GFR NON AFRICAN AMERICAN 79 ML/MIN (>=60); GLUCOSE, SERUM 188 MG/DL (60-99); PHOSPHORUS, SERUM 1.8 MG/DL (2.5-4.5); POTASSIUM, SERUM 3.9 MMOL/L (3.5-5.3); SODIUM, SERUM 139 MMOL/L (135-148)
[2016-07-28 10:06] LABS: GLYCOHEMOGLOBIN (HbA1c) 8.1 % (4.7-6.1)
[2016-07-29 04:08] LABS: BUN (BLOOD UREA NITROGEN) 26 MG/DL (6-23); CALCIUM, SERUM 8.9 MG/DL (8.5-10.4); CHLORIDE, SERUM 93 MMOL/L (96-112); CO2 (CARBON DIOXIDE) 35 MMOL/L (24-34); CREATININE 0.86 MG/DL (0.55-1.02); GFR AFRICAN AMERICAN 73 ML/MIN (>=60); GFR NON AFRICAN AMERICAN 63 ML/MIN (>=60); GLUCOSE, SERUM 214 MG/DL (60-99); PHOSPHORUS, SERUM 2.8 MG/DL (2.5-4.5); POTASSIUM, SERUM 4.2 MMOL/L (3.5-5.3); SODIUM, SERUM 137 MMOL/L (135-148)
[2016-07-29 04:11] LABS: BASOPHILS 0.2 %; BASOPHILS ABSOLUTE 0.02 10/3/uL (0.0-0.16); EOSINOPHILS 0.5 %; EOSINOPHILS ABSOLUTE 0.05 10/3/uL (0.0-0.53); HEMATOCRIT 28.8 % (36.0-48.0); HEMOGLOBIN 9.5 g/dL (12.0-16.0); IMMATURE GRANULOCYTES 1.6 %; IMMATURE GRANULOCYTES ABSOLUTE 0.16 10/3/uL (0.0-0.11); LYMPHOCYTES 10.7 %; LYMPHOCYTES ABSOLUTE 1.08 10/3/uL (0.67-4.30); MEAN CORPUSCULAR HEMOGLOB 30.6 pg (26.0-34.0); MEAN PLATELET VOLUME 11.1 fL (9.2-13.0); MONOCYTES 5.6 %; MONOCYTES ABSOLUTE 0.56 10/3/uL (0.21-1.20); NEUTROPHILS 81.4 %; NEUTROPHILS ABSOLUTE 8.19 10/3/uL (2.02-8.40); PLATELET COUNT 179 10/3/uL (150-400); RBC DISTRIBUTION WIDTH 15.1 % (12.0-16.0)
[2016-07-29 04:14] LABS: MANUAL DIFF NO %; MEAN CORPUSCULAR VOLUME 92.9 fL (80-100); WHITE BLOOD CELLS 10.1 10/3/uL (4.5-10.5)
== END 2016-07-29 17:35 | DRG 698 ==
LOC: ER 23:00 → 4SO 07-21 01:44
PROVIDERS: Family Medicine; Internal Medicine Infectious Disease; Physician Assistant Medical; Specialist
DX: T83.511A Infection and inflammatory reaction due to indwelling urethral catheter, initial encounter (principal); A41.9 Sepsis, unspecified organism; J96.01 Acute respiratory failure with hypoxia; J18.9 Pneumonia, unspecified organism; N17.9 Acute kidney failure, unspecified; I27.2 Other secondary pulmonary hypertension; E11.42 Type 2 diabetes mellitus with diabetic polyneuropathy; E83.42 Hypomagnesemia; R13.12 Dysphagia, oropharyngeal phase; E87.70 Fluid overload, unspecified; J44.9 Chronic obstructive pulmonary disease, unspecified; B96.20 Unspecified Escherichia coli [E. coli] as the cause of diseases classified elsewhere; I10 Essential (primary) hypertension; N39.0 Urinary tract infection, site not specified; Z66 Do not resuscitate; R09.02 Hypoxemia; E87.6 Hypokalemia; I25.10 Atherosclerotic heart disease of native coronary artery without angina pectoris; G25.81 Restless legs syndrome; E78.5 Hyperlipidemia, unspecified; J45.909 Unspecified asthma, uncomplicated; R32 Unspecified urinary incontinence; G47.33 Obstructive sleep apnea (adult) (pediatric); M19.90 Unspecified osteoarthritis, unspecified site; N26.1 Atrophy of kidney (terminal); E83.39 Other disorders of phosphorus metabolism; Z95.1 Presence of aortocoronary bypass graft; Z95.0 Presence of cardiac pacemaker; Z98.890 Other specified postprocedural states; Z95.5 Presence of coronary angioplasty implant and graft; Z88.8 Allergy status to other drugs, medicaments and biological substances; Z82.49 Family history of ischemic heart disease and other diseases of the circulatory system
CPT/HCPCS: 36600; 70450; 71010; 74176; 74230; 80048; 80053; 81001; 82805; 82962; 83036; 83605; 83690; 83735; 83880; 84100; 84132; 84145; 85025; 87040; 87070; 87077; 87086; 87186; 87205; 92610-GN; 92611-GN; 93005; 94640; 94668; 96365; 97110-GO; 97161-GP; 97165-GO; 97530-GP; 99285; A9270-GY; G8978-CL-GP; G8979-CK-GP; G8996-CK-GN; G8996-CN-GN; G8997-CK-GN; G8997-CN-GN; G8998-CK-GN; G8998-CN-GN; J1200; J1940; J2185; J2543; J3370